=== PATIENT | female | born 1990 | race Caucasian/White ===

== ENCOUNTER 2021-08-05 13:40 | Inpatient (IN) | payer OTHER ==
--- NOTE | ~2021-08-05 | OR ---
[facility] [address], [place] [address] Draft DATE OF OPERATION: 08/06/2021 SURGEON: Celi Poole DO PREOPERATIVE DIAGNOSES: 1. Intrauterine and 37th-week gestation. 2. Gestational hypertension. 3. Breech presentation with spontaneous rupture of membranes. POSTOPERATIVE DIAGNOSES: 1. Intrauterine and 37th-week gestation. 2. Gestational hypertension. 3. Breech presentation with spontaneous rupture of membranes. PROCEDURE PERFORMED: Primary low transverse delivery. ANESTHESIA: Epidural. VOICER: Kori Mendoza MD COMPLICATIONS: None. ESTIMATED BLOOD LOSS: 700 mL. DRAINS: Holden to gravity. FINDINGS: A viable female , 7 pounds 1 ounce with Apgars of 7 and 9. Born in the brett breech presentation. No nuchal cord. Normal uterus, tubes, and ovaries bilaterally. INDICATION: Ms. Wilson is a very pleasant 31-year-old G2, P1 white female, who presented for medical induction of labor for gestational hypertension. She received 2 doses of Cytotec and spontaneously ruptured. After rupture of membranes and epidural placement, cervical PATIENT NAME: NEGRITO WILSON OPERATIVE REPORT DATE OF : [birth year] REPORT #: [id number] PHYSICIAN: CELI POOLE DO PCP: LESLIE CAMPA PAC REPORT IS CONFIDENTIAL AND NOT TO BE RELEASED WITHOUT AUTHORIZATION [facility] [address] [place], [place] [address] Draft exam was performed and breech presentation was confirmed with limited bedside ultrasound. Reviewed breech presentation in labor with the patient and recommended primary low transverse delivery. The patient understands and wishes to proceed with the procedure. Risks, benefits, and alternatives were discussed in detail with the patient. The patient understands and wished to proceed with the procedure. TECHNIQUE: The patient was taken to the operating room where a time-out was performed to confirm correct patient and correct procedure. Epidural was bolused and the patient was comfortable. Holden catheter was inserted and ICPs were on and running. The patient received Ancef 2 g as well as azithromycin 500 mg IV preoperatively. Once epidural was noted to be adequate, a Pfannenstiel skin incision was made using a surgical scalpel and carried down to the fascia. The fascia was nicked in the midline and fascial incision was extended bilaterally using curved Gallardo scissors. The fascia was grasped with Yue's, elevated, and the underlying rectus muscle divided off sharply and bluntly. The rectus muscles were divided in the midline bluntly and the peritoneum was also entered bluntly. Peritoneal incision was extended cephalad caudad using sharp and blunt dissection. The lower uterine segment was identified. No intraabdominal or pelvic adhesions were noted. An [place] self retractor was placed and hysterotomy was performed using a surgical scalpel. Hysterotomy was extended bilaterally using blunt dissection. Amnion was noted to be clear. The buttocks were delivered by grasping the iliac crest and elevating into the abdomen with the assistance of fundal pressure. The buttocks and legs were delivered and the abdomen was delivered to the anterior axilla. The arm was gently swept medially and delivered. The baby was rotated to 180 degrees and now anterior arm was swept medially and delivered. The baby was then rotated to 90 degrees occiput anterior. The head was gently flexed and the was delivered without difficulty. No nuchal cord was identified and the was vigorous at delivery. Cord was doubly clamped and cut and handed to the waiting pediatric team for further care. Cord blood was obtained and placenta was manually expressed intact with a centrally inserted 3-vessel cord. The uterus was cleared of any remaining products of conception or clot and Pitocin was administered per protocol. Hysterotomy was repaired using 0 Monocryl in a running locked suture and a second imbricating layer also of 0 Monocryl suture. The pelvis was irrigated and made hemostatic with judicious use of Bovie electrocautery. The [place] self retractor was removed and after ensuring hemostasis, ACell sheet was applied to the lower uterine segment. Tubes and ovaries were normal bilaterally. Peritoneum was then reapproximated using 2-0 Vicryl in a running nonlocked manner. Rectus was examined and made hemostatic with judicious use of Bovie electrocautery. The rectus was then plicated in the midline using 0 Vicryl in several interrupted sutures. ACell powder was applied to the rectus sheath. Fascia was then reapproximated using 0 Vicryl in a running nonlocked manner. Subcu was examined and made hemostatic with Bovie electrocautery after irrigation. Subcu was reapproximated using 3-0 Vicryl in a running nonlocked manner. [place] were used to PATIENT NAME: NEGRITO WILSON OPERATIVE REPORT DATE OF : [birth year] REPORT #: [id number] PHYSICIAN: CELI POOLE DO PCP: LESLIE CAMPA PAC REPORT IS CONFIDENTIAL AND NOT TO BE RELEASED WITHOUT AUTHORIZATION [address] [address] Draft close skin incision. The uterus was then Crede'd for scant amount of blood and the patient was taken to PACU in good and stable condition. Sponge, needle, and instrument count was correct x2 at the end of the procedure. Dr. Mendoza was present and participated in all portions of procedure. Celi Poole DO JLUANNE/PATRIC /[id number] Copies: ~ PATIENT NAME: NEGRITO WILSON OPERATIVE REPORT DATE OF : [birth year] REPORT #: [id number] PHYSICIAN: CELI POOLE DO PCP: LESLIE CAMPA PAC REPORT IS CONFIDENTIAL AND NOT TO BE RELEASED WITHOUT AUTHORIZATION
--- NOTE | 2021-08-06 12:10 | PR ---
[facility] [address], [place] [address] Signed Progress Notes IP Datetime Report Generated by CPN: 08/06/2021 12:10 PROGRESS NOTES: [id number] Impression: Normal Progression of Labor; Reassuring Heart Rate Procedures: Sterile Vag Exam; Ultrasound Plan: Deliver- Section Informed Consent Obtain: Section Delivery; Risks, Benefits and Alternatives Discussed VITAL SIGNS: [id number] Vital Signs: Reviewed; Within Normal Limits EXAM: [id number] Dilatation: 1.5 Effacement: 50 Station: -3 Contractions: q 2 min mild MEMBRANES: [id number] Membranes Status: Ruptured Comments: Pt SROM w/ large amount of fluid and contractions became more painful. Pt requested epidural, and is now getting comfortable. On pelvic exam, high station noted by RN. Cranial sutures not appreciated when I performed exam and bedside US performed demonstrating brett breech presentation. Discused indication for primary LTCS w/ pt and she understands and agrees. Consents signed, OR crew notified, and Dr. Mendoza to assist. Ancef 2 g and Azithromycin 500mg IV ordered. FETUS A: [id number] FHR Baseline: 135 Variability: Moderate 6-25bpm Accelerations: None Decelerations: None FHR Category: Category I Presentation: Vertex Comments on Fetus A: No evidence of metabolic acidosis FETUS B: [id number] Signing Physician: Celi Poole DO Copies: ~ *Electronically Signed* 08/06/21 1210 CELI POOLE DO PATIENT NAME: NEGRITO HUNG PROGRESS NOTE DATE OF : [birth year] PHYSICIAN: CELI POOLE DO RPT #: [id number] REPORT IS CONFIDENTIAL AND NOT TO BE RELEASED WITHOUT AUTHORIZATION
--- NOTE | 2021-08-06 13:51 | NUR ---
08/06/21 1351 Libia Bassett 1340-PATIENT ARRIVED BACK TO ROOM 105 FOR RECOVERY PATIENT AWAKE REPORTS "TIRED" DENIES PAIN OR NAUSEA. RA 97% RR EVEN. LR WITH 30 PITOCIN INFUSING TO RIGHT HAND CDI. 1345-PATIENT FEEDING BABY TO BREAST SPINAL LEVEL AT L1. FUNDUS AT UMBILICUS LIGHT RUBRA DRAINAGE FIRM MIDLINE.
--- NOTE | 2021-08-07 07:16 | PR ---
[facility] [address] [place], [place] [address] Signed PP Progress Notes Datetime Report Generated by CPN: 08/07/2021 07:16 SUBJECTIVE: [id number] Pain: Within Normal Limits Nausea/Vomiting: Denies Flatus: Yes Bowel Movement: No Vital Signs: [id number] Vital Signs: Reviewed; Within Normal Limits Cardiovascular: Normal Respiratory: Normal Abdomen/Uterus: Normal Lochia: Normal CVA Tenderness: Normal Extremities: Normal Incision: Normal Progress: Normal Exam Comments: Fundus firm U-2 nontender. Incision clean / dry / intact. IMPRESSION/PLAN/PROCEDURES: [id number] Impression: Normal Progression Plan: Continue Present Management Progress Notes: Pt seen and examined. Doing well. Ambulating and tolerating full diet. Holden remains in place. No fevers chills or other concerns. well. BPs normal. No GARCIA, RUQ pain, or visual changes. Hgb 11.5. Anticipate d/c home tomorrow. Signing Physician: Celi Poole DO Copies: ~ *Electronically Signed* 08/07/21 0716 CELI POOLE DO PATIENT NAME: NEGRITO HUNG PROGRESS NOTE DATE OF : [birth year] PHYSICIAN: CELI POOLE DO RPT #: [id number] REPORT IS CONFIDENTIAL AND NOT TO BE RELEASED WITHOUT AUTHORIZATION
--- NOTE | 2021-08-08 10:48 | PR ---
[facility] [address] [facility] [place], [place] [address] Signed PP Progress Notes Datetime Report Generated by CPN: 08/08/2021 10:48 SUBJECTIVE: [id number] Pain: Within Normal Limits Nausea/Vomiting: Denies Flatus: Yes Bowel Movement: No Vital Signs: [id number] Vital Signs: Reviewed; Within Normal Limits Cardiovascular: Normal Respiratory: Normal Abdomen/Uterus: Normal Lochia: Normal CVA Tenderness: Normal Extremities: Normal Incision: Normal Progress: Normal Exam Comments: Fundus firm U-2 nontender. Incision clean / dry / intact. IMPRESSION/PLAN/PROCEDURES: [id number] Impression: Normal Progression Plan: Discharge Procedures: None Progress Notes: Doing well, without complaint, ready to go home. Signing Physician: Shannan Luke MD Copies: ~ *Electronically Signed* 08/08/21 1048 SHANNAN LUKE MD PATIENT NAME: NEGRITO HUNG PROGRESS NOTE DATE OF : [birth year] PHYSICIAN: SHANNAN LUKE MD RPT #: [id number] REPORT IS CONFIDENTIAL AND NOT TO BE RELEASED WITHOUT AUTHORIZATION
== END 2021-08-08 11:35 | disposition home or self-care (01) | DRG 788 ==
LOC: FBC 08-06 00:07
PROVIDERS: ADMIT Obstetrics & Gynecology; ATTEND Obstetrics & Gynecology
PROC: 10D00Z1 Extraction of Products of Conception, Low, Open Approach (ICD-10-PCS; principal; 2021-08-06 12:26)
DX: O13.4 Gestational [pregnancy-induced] hypertension without significant proteinuria, complicating childbirth (principal); O32.1XX0 Maternal care for breech presentation, not applicable or unspecified; O76 Abnormality in fetal heart rate and rhythm complicating labor and delivery; Z20.822 Contact with and (suspected) exposure to COVID-19; Z3A.37 37 weeks gestation of pregnancy; Z37.0 Single live birth
CPT/HCPCS: 01961; 80053; 82570; 84156; 84550; 85027; A9270; C9803; J0456; J0690; J1650; J1885; J2001; J2175; J2274; J2405; J2550; J2590; J2795; J7060; J7121; U0003

== ENCOUNTER 2025-06-05 09:20 | Day surgery (SDC) | payer OTHER ==
[~2025-06-05] VITALS: Ht 157.5 cm; Wt 67.0 kg
--- NOTE | ~2025-06-05 | OR ---
[facility] [address] [facility] [place], [place] [address] Draft DATE OF OPERATION: 06/05/2025 SURGEON: Ross Medellin DO PREOPERATIVE DIAGNOSIS: Colon cancer screening. POSTOPERATIVE DIAGNOSIS: Colon cancer screening with nonspecific colitis and internal hemorrhoids. PROCEDURE PERFORMED: Colonoscopy. ANESTHESIA: IV sedation. ESTIMATED BLOOD LOSS: None. DRAINS: None. COMPLICATIONS: None. DESCRIPTION OF PROCEDURE: The patient was brought to the GI lab and placed in the supine position. After induction of IV sedation, the patient was placed in the left lateral position and padded to the satisfaction of anesthesia. Digital rectal exam was performed, and it was unremarkable. The Olympus video colonoscope was then introduced into the rectal vault insufflating and advanced through the rectosigmoid, sigmoid colon, descending colon, transverse colon, ascending colon and to the cecum. The colon was then insufflated, and mucosal exploration was then carried out. No intrinsic or extrinsic masses, no lesions, no ulcerations were noted in the ascending colon or cecum. Scope was brought back into the transverse colon. No intrinsic or extrinsic masses, lesions, or ulcerations were noted. Scope was brought back past the splenic flexure into the descending colon. No lesions, ulceration, intrinsic or extrinsic masses were noted. Scope was brought back into the sigmoid colon. Some mild nonspecific colitis was appreciated, but no other intrinsic or extrinsic masses, lesions, or ulcerations were appreciated. Scope was then brought back into the rectum, and some scattered internal hemorrhoids were appreciated PATIENT NAME: NEGRITO HUNG OPERATIVE REPORT DATE OF : [birth year] REPORT #: [id number] PHYSICIAN: ROSS MEDELLIN DO PCP: LESLIE CAMPA PAC REPORT IS CONFIDENTIAL AND NOT TO BE RELEASED WITHOUT AUTHORIZATION [address] [place] [address] Draft that were nonbleeding and nonthrombosed. The scope was removed. The patient tolerated the procedure well and went to Recovery in satisfactory condition. DO DEVIN Bauman/PATRIC /[id number] Copies: ~ PATIENT NAME: NEGRITO HUNG OPERATIVE REPORT DATE OF : [birth year] REPORT #: [id number] PHYSICIAN: ROSS MEDELLIN DO PCP: LESLIE CAMPA PAC REPORT IS CONFIDENTIAL AND NOT TO BE RELEASED WITHOUT AUTHORIZATION
[~2025-06-05 09:20] MED LIST: IBLOOD GLUCOSE TEST STRIP 1 EA TEST VI PRN; LACTATED RINGER'S 1,000 ML IV SCH; LIDOCAINE HCL 1% 5 ML SDV INJ ONE
[2025-06-05 09:28] VITALS: BP 127/73
[2025-06-05] MEDS ORDERED: LIDOCAINE HCL 2% 5 ML SDV ONE (10:24)
--- NOTE | 2025-06-05 11:28 | NUR ---
06/05/25 Shilpa8 Libia Bassett 1123-PATIENT ARRIVED TO PACU ON 6L MASK NONAROUSABLE RR EVEN. PATIENT LAYING LEFT LATERAL ABDOMEN SOFT IVF INFUSING
[2025-06-05 12:17] VITALS: BP 128/83
== END 2025-06-05 12:23 | disposition home or self-care (01) ==
LOC: DS 09:20 → OPS 09:20 → DS 10:20 → OPS 12:23
PROVIDERS: ATTEND Surgery
PROC: 0DJD8ZZ Inspection of Lower Intestinal Tract, Via Natural or Artificial Opening Endoscopic (ICD-10-PCS; principal; 2025-06-05 10:20)
DX: Z12.11 Encounter for screening for malignant neoplasm of colon (principal); K52.9 Noninfective gastroenteritis and colitis, unspecified; K64.8 Other hemorrhoids; Z80.0 Family history of malignant neoplasm of digestive organs
CPT/HCPCS: 00812; J2003; J2704; J7121